=== PATIENT | male | born 1990 | race Caucasian/White ===

== ENCOUNTER 2016-07-21 01:27 | Observation (INO) | payer OTHER ==
[~2016-07-21] VITALS: Ht 170.2 cm; Wt 61.2 kg
[2016-07-21] VITALS (13 sets, daily range): BP systolic 104–138; BP diastolic 53–85
[~2016-07-21 01:27] MED LIST: CYCLOBENZAPRINE5 M1 PO; MOTRIN 600 MG600 MG PO
--- NOTE | 2016-07-21 01:37 | NUR ---
25yo MALETO TRIAGE REQUESTING DETOX FROM ALCOHOL AND HEROIN. STATES LAST DRINK WAS TH AM AND LAST HEROIN USE WAS 24HR AGO. STATES N,V,D BEGAN THIS EVENING. STATES HE HAS "BEEN DRINKING AND USING DRUGS DAILY BASIS FOR 4 MONTHS"
--- NOTE | 2016-07-21 01:44 | ED AMS/SEIZURE/WEAK/DIZZY ---
See Addendum History of Present Illness General Chief Complaint: ETOH/Drug Related Complaint Stated Complaint: " HERE FOR ETOH/ HEROIN DETOX" Source: patient Exam Limitations: no limitations Vital Signs & Intake/Output Vital Signs & Intake/Output Vital Signs Date Time Temp Pulse Resp B/P B/P Pulse O2 O2 Flow FiO2 Mean Ox Delivery Rate 06/ 0110 97.2 70 16 118/66 06/02 0110 97.2 70 16 118/66 98 Room Air Room Air 06/01 2257 98.3 81 20 119/77 06/01 2254 98.3 81 20 119/77 98 Room Air 06/01 1937 97.5 113 20 120/77 06/01 1927 97.5 113 20 123/77 97 06/01 1546 99.5 111 24 138/83 06/01 1540 99.5 111 24 138/83 06/01 1400 98 Room Air 06/01 1320 98.0 110 16 122/70 99 Room Air 06/01 1230 95 Room Air 06/01 1224 98.0 108 16 104/58 06/01 1224 97.0 108 16 104/58 98 Room Air 06/01 1043 98.1 116 16 122/66 06/01 0950 97.9 120 16 130/85 06/01 0950 97.0 120 15 130/85 97 Room Air Room Air 06/01 0850 98.1 112 18 128/70 06/01 0850 98.1 112 16 128/70 97 Room Air 06/01 0836 98.1 98 18 106/66 06/01 0730 98.1 98 18 106/66 98 Room Air 06/01 0655 99.5 109 18 105/53 06/01 0655 97.7 104 18 108/60 97 Room Air 06/01 0645 99.5 104 18 106/55 06/01 0625 99.5 06/01 0538 99.5 109 18 105/53 06/01 0521 99.5 109 18 105/53 96 Room Air 06/01 0440 100.8 06/01 0345 100.8 106 18 111/74 06/01 0345 100.8 106 18 111/74 99 Room Air 06/01 0245 100.8 119 16 110/65 ED Intake and Output 06/02 0000 06/01 1200 Intake Total 120 1000 Output Total Balance 120 1000 Intake, IV 1000 Intake, Oral 120 Patient 135 lb Weight Allergies Coded Allergies: amoxicillin (Severe, HIVES 07/21/16) Reconcile Medications CYCLOBENZAPRINE HCL (Cyclobenzaprine Hydrochloride) 5 MG TABLET 1 TAB PO TID MUSCLE SPASMS (Reported) Ibuprofen (Motrin 600 MG Tab) 600 MG TABLET 1 TAB PO Q6H PRN PAIN (Reported) Triage Note: 25yo MALETO TRIAGE REQUESTING DETOX FROM ALCOHOL AND HEROIN. STATES LAST DRINK WAS THURS AM AND LAST HEROIN USE WAS 24HR AGO. STATES N,V,D BEGAN THIS EVENING. STATES HE HAS "BEEN DRINKING AND USING DRUGS DAILY BASIS FOR 4 MONTHS" Triage Nurses Notes Reviewed? yes Onset: Gradual Duration: hour(s):, getting worse Timing: recent history Injury Environment: home Severity: moderate Modifying Factors: Improves With: other (W/ALCOHOL/HEROIN). Associated Symptoms: MYALGIA, FEVER, NAUSEA HPI: 25 yo gentleman presents seeking etoh and heroin detox. He shares that he drinks 1 pint a day, but stopped at approximately 7pm. He has been drinking for 4 months. He notes also that he has been injecting 1 bundle of heroin a day, and last used yesterday. He denies other drug use, SI/HI. He shares that he had a seizure from etoh detox last year. (VICTOR MANUEL LEVY,ZOHAIB Don) Past History Travel History Traveled to [place] past 21 day No Medical History Any Pertinent Medical History? see below for history Neurological: NONE EENT: NONE Cardiovascular: NONE Respiratory: NONE Gastrointestinal: NONE Hepatic: NONE Renal: NONE Musculoskeletal: NONE Psychiatric: NONE Endocrine: NONE Blood Disorders: NONE Cancer(s): NONE CLAIMS PROCESSOR/Reproductive: NONE Tetanus Vaccine: 04/21/11 Surgical History Surgical History: N Psychosocial History What is your primary language Northern Irish Family History Hx Contributory? No (VICTOR MANUEL LEVY,ZOHAIB Don) Review of Systems Review of Systems Constitutional: Reports: no symptoms. EENTM: Reports: no symptoms. Respiratory: Reports: no symptoms. Cardiovascular: Reports: no symptoms. GI: Reports: no symptoms. Genitourinary: Reports: no symptoms. Musculoskeletal: Reports: no symptoms. Skin: Reports: no symptoms. Neurological/Psychological: Reports: no symptoms. Hematologic/Endocrine: Reports: no symptoms. Immunologic/Allergic: Reports: no symptoms. All Other Systems: Reviewed and Negative (VICTOR MANUELZOHAIB JARA MD) Physical Exam Physical Exam General Appearance: well developed/nourished, moderate distress Head: atraumatic, normal appearance Eyes: Bilateral: normal appearance. Ears, Nose, Throat: normal pharynx, normal ENT inspection Neck: normal inspection, supple, full range of motion Respiratory: normal breath sounds, chest non-tender, no respiratory distress, quiet respiration, lungs clear Cardiovascular: regular rate/rhythm Gastrointestinal: normal bowel sounds, soft, non-tender, no organomegaly Back: normal inspection, normal range of motion Extremities: normal range of motion, track cochran noted. no sign of infection Neurologic/Psych: no motor/sensory deficits, awake, alert, oriented x 3 Skin: intact, normal color Core Measures ACS in differential dx? No CVA/TIA Diagnosis: No Severe Sepsis Present: No Septic Shock Present: No (VICTOR MANUEL LEVY,ZOHAIB Don) Progress Differential Diagnosis: polysubstance abuse, withdrawal, vs other. Plan of Care: Orders Procedure Date/time Status Continuous Observation Monitor 07/22 0700 Active Restraint- Medical 07/22 0430 Active Continuous Observation Monitor 07/22 0300 Active Restraint- Medical 07/22 0030 Active Regular Diet 07/21 B Active Continuous Observation Monitor 07/21 2300 Active Restraint- Medical 07/21 2030 Active Continuous Observation Monitor 07/21 1900 Active Code Status 07/[address] in observation 07/21 1307 Active Patient Data 07/21 1307 Active ED CRISIS PSYCH CONSULT 07/21 1304 Active Patient Safety Monitor 07/21 1222 Active Continuous Observation Monitor 07/21 0735 Active CIWA 07/21 0354 Active Intake & Output 07/21 0238 Active Laboratory Tests 07/21/16 0401: Urine Opiates Screen 3621.00 H, Methadone Screen < 40, Barbiturate Screen < 60, Ur Phencyclidine Scrn < 6.00, Amphetamines Screen < 100, U Benzodiazepines Scrn < 85, Urine Cocaine Screen > 1000 H, Urine Cannabis Screen > 80.00 H Initial ED EKG: sinus tach Hand-Off Endorsed To: YVON BHATTI MD Endorsed Time: 0700 Pending: consult (VICTOR MANUEL LEVY,ZOHAIB Don) Hand-Off Endorsed To: GLORIA VILA MD Endorsed Time: 1900 Pending: consult Comments: Vision is refusing to stay for alcohol detox. Patient received Haldol and Phenergan prior to my arrival. At this point the patient is to was able to be discharged however once the medications wear off if he still wants to leave and he remains nonsuicidal or homicidal he will be discharged. (YVON BHATTI MD) Hand-Off Endorsed To: SEBASTIEN LEVY,TIARA Tapia Endorsed Time: 0700 Pending: consult (GLORIA VILA MD) Departure Departure Condition: Stable Clinical Impression Primary Impression: Polysubstance abuse Secondary Impressions: Alcohol withdrawal, Cocaine abuse, Marijuana abuse Departure Forms: Customer Survey General Discharge Information Comments 07/21/16, 5:08am...Pt resting comfortably in ED.... case management to consult in AM. (VICTOR MANUEL LEVY,ZOHAIB Don) Departure Additional Instructions: RETURN IF YOU WOULD LIKE HELP TO STOP USING DRUGS AND DRINKING ALCOHOL. (YVON BHATTI MD) Departure Disposition: STILL A PATIENT Referrals: PATIENT HAS NO PRIMARY CARE DR (PCP/Family) (GLORIA VILA MD) ED Attending Observation Initial Observation Note: I have seen and personally examined SAM SIMON on 07/21/16 at 1313. I agree with the current emergency department documentation. The disposition (admission or discharge) is uncertain at this time, he needs a period of observation for the following reason(s): [A she remains agitated and confused. Patient is requiring constant supervision and is currently in the neck bed. A police paper was faxed over. The patient had made suicidal comments via text message it. Patient will require psychiatric evaluation. Patient is still at high risk.] The ED Nurse caring for this patient has been personally informed as to what the patient is being observed for. Observation Re-Evaluation: I have reevaluated SAM SIMON on 07/21/16 at 1820. The physical findings that support the continued need to observe this patient include [patient is still requiring the neck bed for uncontrolled agitation and unsafe ambulation. Patient will require a crisis consultation.]. (YVON BHATTI MD)
--- NOTE | 2016-07-21 02:04 | NUR ---
PT TO ROOM 12, CHANGED INTO BLUE SCRUBS. WANDED BY SECURITY. MOTHER WILL TAKE ALL PTS BELONGINGS AND VALUABLES. PT SINUS TACHYCARDIA ON TURNER MACHINE, EKG DONE, PT DENIES CP
--- NOTE | 2016-07-21 02:19 | NUR ---
IV EST #20 IN RIGHT HAND BY ISAMAR GANN PT MEDICATED WITH 2MG PO ATIVAN, 2MG IV ATIVAN, 0.1 CATAPRES, 4MG ZOFRAN, AND NS INFUSING PER EMAR
[2016-07-21 02:24] LABS: ABSOLUTE BASOPHIL COUNT 0 /CUMM (0.0-0.2); ABSOLUTE EOSINOPHIL COUNT 0.1 /CUMM (0.0-0.7); ABSOLUTE GRANULOCYTE CT 9.8 /CUMM (1.4-6.5); ABSOLUTE LYMPH COUNT 0.9 /CUMM (1.2-3.4); ABSOLUTE MONOCYTE COUNT 0.7 /CUMM (0.10-0.60); BASOPHIL % 0.1 % (0.0-2.0); EOSINOPHIL % 0.6 % (0-5); HEMATOCRIT 45.4 % (42-52); MEAN CORPUSCULAR HGB 28.6 PG (27.0-31.0); MEAN CORPUSCULAR HGB CONC 33.6 G/DL (33.0-37.0); MEAN CORPUSCULAR VOLUME 85.2 FL (80.0-94.0); MEAN PLATELET VOLUME 8.4 FL (7.4-10.4); PLATELET COUNT 129 /CUMM (130-400); RBC DISTRIBUTION WIDTH 14.4 % (11.5-14.5); RED BLOOD CELL CT 5.33 /CUMM (4.70-6.10); WHITE BLOOD CELL COUNT 11.5 /CUMM (4.8-10.8)
--- NOTE | 2016-07-21 04:05 | NUR ---
PT'S URINE OBTAINED AT 0401 AND SENT TO LAB
--- NOTE | 2016-07-21 04:19 | NUR ---
PT IV RIPPED OUT, AZEEM RN AT BEDSIDE FOR SECOND IV PLACEMENT
--- NOTE | 2016-07-21 04:39 | NUR ---
SECOND IV EST #20 IN LEFT HAND. PT MEDICATED WITH 2ND LITER OF NS, 30MG TORADOL, 4MG ZOFRAN, AND 975MG TYLENOL PER EMAR
--- NOTE | 2016-07-21 05:27 | NUR ---
PT MEDICATED WITH 3RD NS LITER INFUSING PER EMAR
--- NOTE | 2016-07-21 05:39 | NUR ---
PT MEDICATED WITH 2MG PO ATIVAN AND 2MG IV ATIVAN FOR CIWA SCORE 17.
--- NOTE | 2016-07-21 06:16 | NUR ---
PT RIPPED OUT SECOND IV BECAUSE "MEDICINES WERENT WORKING". PT MEDICATED WITH IM 5MG HALDOL AND 2MG ATIVAN IM PER EMAR.
--- NOTE | 2016-07-21 06:25 | NUR ---
PT MEDICATED WITH 21MG PAT NICOTINE PATCH PER EMAR TO LEFT ARM
--- NOTE | 2016-07-21 06:56 | NUR ---
PT STATING THAT HE WANTS TO LEAVE AND NOT WAIT FOR CASE MANAGEMENT EVAL IN AM. AT BEDSIDE FOR DISCUSSION. PT MEDICATED PER EMAR 25MG PHENERGEN, 5MG HALDOL, 2MG ATIVAN, AND 0.1 CLONODINE BP 106/55
--- NOTE | 2016-07-21 07:37 | NUR ---
PT NOTED TO BE STANDING UP NEXT TO GARBAGE CAN AT THIS TIME, UPON ENTERING ROOM PT URINATING IN GARBAGE CAN. PT ASSISTED BACK INTO BED, EXPLAINED TO PT TO LET STAFF MEMBERS KNOW WHEN HE HAS TO USE THE BATHROOM AND WE WILL ASSIST HIM. PT CONTINUES TO GET UP AND WALK AROUND ROOM. MULTIPLE STAFF MEMBERS IN ROOM MULTIPLE TIMES TO GET PT TO STAY IN BED FOR SAFETY.
--- NOTE | 2016-07-21 08:04 | NUR ---
PT CONTINUES TO CLIMB OFF STRETCHER VERY DIFFICULT TO REDIRECT , UNABLE TO STAND VERY OFF BALANCE AND NOTED TO THRASHING AROUND, PT STATES THAT HE IS CRAWLING OUT OF HIS SKIN. PTS MOTHER CALLED AND STATED THAT A [place] WEATHER STRIPPER MAY SHOW UP DUE TO PT MADE SELF HARM STATEMENTS 2 WEEKS AGO TO HER AND HIS SISTER. AT THIS TIME PT DENIES WANTING TO HARM SELF.
--- NOTE | 2016-07-21 08:17 | NUR ---
PT CONTINUED TO CLIMB OFF STRETCHER AND STAFF HAVING TO CATCH HIM FROM FALLING BACKWARDS. PT PLACED IN NET BED WITH 1 SIDE UNZIPPED WITH SITTER AT BEDSIDE.
--- NOTE | 2016-07-21 08:33 | NUR ---
pt thrashing around on bed, yelling out.sitter remains with patient for his safety
--- NOTE | 2016-07-21 09:37 | NUR ---
THIS RN SPOKE WITH PATIENTS MOM, "I JUST WANTED TO GIVE YOU A HEADS UP THAT A INCINERATOR PLANT LABORER MAY BE COMING TO SEE HIM OR CALL THE STAFF TODAY." PER MOTHER, FOR THE LAST TWO WEEKS, A INCINERATOR PLANT LABORER HAS BEEN COMING TO DO SAFETY CHECKS DAILY EVER SINCE THE MOTHER PLACED A CALL TO PD TWO WEEKS AGO ABOUT THE PATIENT SENDING "SELF-HARM" TEXTS. INCINERATOR PLANT LABORER IS AWARE PT IS HERE, BUT MAY BE COMING TO VISIST, UNSURE AT THIS TIME.
--- NOTE | 2016-07-21 10:18 | NUR ---
PT YELLING OUT STATES THAT HE HAS TO MOVE HIS BOWELS , PT AMBULATED TO BATHROOM ASSIST OF 2 DUE TO VERY UNSTEADY GAIT AND MALE TRAVEL SPECIALIST WITH PT. PTS GRANDFATHER AT BEDSIDE AND PT NOTED TO BE YELLING AT HIM. PT AMBULATED BACK TO ROOM, PT STATES THAT HIS MUSCLES KEEP TENSING UP ON HIM, PT HAS NOT BEEN ABLE TO REST OR CLOSE EYES SINCE THIS NURSES ARRIVAL AT 0700
--- NOTE | 2016-07-21 10:32 | NUR ---
PER DR BHATTI PT IS STILL REFUSING DETOX AND WOULD LIKE TO BE ADMITTED, PATIENT REMAINS UNSTEADY ON HIS FEET . NO VISIBLE TREMORS NOTED . PT NOTED TO BE GETTING SLEEPY AT THIS TIME, PTS GRANDFATHER WENT HOME AND FRIEND NASRA AT [facility] TRYING TO SPEAK WITH PT
--- NOTE | 2016-07-21 11:42 | NUR ---
PT NOTED TO BE STANDING ON STRETCHER AND DIFFICULT TO REDIRECT BY SITTER
--- NOTE | 2016-07-21 11:51 | NUR ---
AMBULATORY TO BATHROOM
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
--- NOTE | 2016-07-21 12:48 | NUR ---
PT REMAINS AGITATED AND DIFFICULT TO REDIRECT. DR BHATTI TO WAITING ROOM TO INFORM MOTHER THAT PT NEEDS CONTINUED OBSERVATION
--- NOTE | 2016-07-21 13:00 | NUR ---
RECEIVED FAX FROM PROCESS MANAGER WITH [employer] FROM 07/07 REGARDING SUICIDAL TEXT MESSAGES. PT DENIES SI CURRENTLY AND SHOWS MINIMAL INSIGHT INTO THAT PREVIOUS SITUATION
--- NOTE | 2016-07-21 13:01 | NUR ---
DENISE WILLIAM AT BEDSIDE DUE TO PATIENTS CONTINUED EXPLOSIVE EPISODES AND AGITATION IN ROOM
--- NOTE | 2016-07-21 13:24 | NUR ---
PT CONTINUES TO ESCALATE DESPITE FREQUENT REDIRECTION, LIMIT SETTING AND EMOTIONAL SUPPORT PROVIDED. UNWILLING TO COOPERATE WITH BEHAVIORAL EXPECTATIONS OF ED. JUMPING UP STANDING ON STRETCHER AND SCREAMING. SPITTING AT SITTER. MD AWARE AND SECURITY TO BEDSIDE FOR ASSISTANCE WITH MEDICATION ADMINISTRATION. PT ACCEPTING MEDS OFFERED, MEDICATED WITH ATIVAN, BENADRYL AND ZYPREXA PER eMAR
--- NOTE | 2016-07-21 13:55 | NUR ---
PT CONTINUES TO JUMP AROUND ON STRETCHER, DEMONSTRATES UNSAFE AMBULATION AND NO ORIENTED TO PLACE OR TIME. DEMONSTRATES DISSASSOCIATION TO REALITY.
--- NOTE | 2016-07-21 14:01 | NUR ---
CRISIS UNABLE TO EVALUATE SAM AT THIS TIME DUE TO PATIENT'S CONDITION. CONTINUES TO TRY TO AMBULATE ON STRETCHER, REDIRECTED BY SITTER. CONTINUES WITH DISORGANIZED SPEECH AND SLURRING HIS WORDS. UNABLE TO ARTICULATE SENTENCES AND INTERACT APPROPRIATELY WITH STAFF
--- NOTE | 2016-07-21 14:07 | NUR ---
Pt is unable to cooperate and participate in crisis eval at this time. This board writer will continue to check in for assessment.
--- NOTE | 2016-07-21 15:34 | NUR ---
CONTINUES TO STAND UP ON STRETCHER AND TAKING CLOTHES OFF. SITTER REMAINS PRESENT TO REDIRECT BEHAVIOR
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
--- NOTE | 2016-07-21 16:25 | NUR ---
PT BEING TRANSFERRED TO 15
--- NOTE | 2016-07-21 18:20 | NUR ---
PT WANTING TO SIT AT BEDSIDE FOR URINAL. STILL DIFFICULT TO REDIRECT. ASSISTANCE OFERED FOR URINAL WHICH PT DID NOT APPEAR TO UNDERSTAND
--- NOTE | 2016-07-21 20:05 | NUR ---
SW attempted to complete Crisis evaluation, however the patient is not able to participate. He appears agitated, confused and was not speaking in coherent sentences. He was informed that he will be here overnight and evaluated by Crisis in the AM, however it does not appear that he understood. Case discussed with ISAMAR Guido and Dr. Cavazos.
--- NOTE | 2016-07-21 21:17 | NUR ---
PT SEEN IN ROOM, LIGHTS OFF. PT LYING IN BED, RESTING QUIETLY.
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
[2016-07-22] VITALS (7 sets, daily range): BP systolic 105–144; BP diastolic 57–67
--- NOTE | 2016-07-22 01:14 | NUR ---
REMAINS IN ZIPPED NET BED. WHEN BED UNZIPPED FOR VS PT STATED "I FEEL LIKE A CAGED ANIMAL IN THIS THING CAN I PLEASE GET OUT" SPEECH SLIGHTLY GARBLED ,BUT APPROPRIATE. SITTER REMAINS AT DOOR.
--- NOTE | 2016-07-22 03:30 | NUR ---
REMAINS IN NET BED. LYING FLAT W/BLANKET OVER HIS HEAD. ANSWERS APPROPRIATELY IN GARBLED SPEECH TO SIMPLE QUESTIONS. SITTER REMAINS PRESENT
--- NOTE | 2016-07-22 05:45 | NUR ---
REMAINS IN NET BED. SLEEPING VERY SHORT INTERVALS. VS TAKEN. SPEECH REMAINS SLOW GARBLED, BUT APPROPRIATE SITTERPRESENT
--- NOTE | 2016-07-22 06:28 | NUR ---
RECD CALL FROM PT'S FATHER IF ANY QUESTIONS ARISE HE CAN BE REACHED AT [phone].
--- NOTE | 2016-07-22 07:41 | NUR ---
PT SLEEPING SOUNDLY AT THIS TIME, REG RESP RATE NOTED. SLIGHTLY UNCOOPERATIVE WITH WAKING UP FOR VITAL SIGNS, ASKING PT MULTIPLE TIMES TO PLEASE ROLL OVER SO VITAL SIGNS CAN BE TAKEN. PT CONTINUES TO LAY WITH EYES OPEN. AFTER MULIPLE ATTEMTS PT ROLLED OVER AND SAT UP AND ALLOWED THIS RN TO TAKE VITALS. VSS. ASKED PT IF HE WOULD LIKE BREAKFAST TRAY AND PT RESPONDING "NO" SITTER REMAINS PRESRNT, PT REMAINS IN NET BED AT THIS TIME FOR SATETY. WILL CTM. PT NOT ANSWERING ANY OTHER QUESTIONS THIS RN IS ASKING, PT SITTING THERE REMAINING QUIET AT THIS TIME.
--- NOTE | 2016-07-22 08:11 | NUR ---
Crisis made another attempt to evaluate pt and he only answers questions with a groaning sound or not answering at all.
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
--- NOTE | 2016-07-22 09:22 | NUR ---
SPOKE TO PTS MOTHER TAHIRA. UPDATE PROVIDED AT THIS TIME. PT REMAINS SLEEPING IN NET BED AT THIS TIME, REG RESP RATE NOTED. WILL CTM SITTER REMAINS PRESENT
--- NOTE | 2016-07-22 09:59 | NUR ---
PT TAKEN OUT OF NET BED, PT CALM AND COOPERATIVE, OFFERS NO COMPLAINTS. PROVIDED TOOTHBRUSH AND TOOTHPASTE FOR ORAL HYGEINE AND NEW SET OF BH SCRUBS.
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
--- NOTE | 2016-07-22 12:32 | NUR ---
PT SLEEPING, NORMAL RESP RATE NOTED.
--- NOTE | 2016-07-22 12:54 | NUR ---
PT REQUESTING TO CALL HIS MOTHER AT THIS TIME, ASISTED TO USE THE PHONE TO MAKE PHONE CALL
--- NOTE | 2016-07-22 13:48 | NUR ---
PT RESTING ON STRETCHER, PT SEEMS TO BE GETTING SLIGHTLY AGITATED THAT THE PROCESS IS TAKING SO LONG. PT EDUCATED ON CRISIS PROCESS AND OFFERED DIVERSIONAL ACTIVITIES. PT REQUESTING NICOTINE PATCH
--- NOTE | 2016-07-22 14:54 | NUR ---
NICOTINE PATCH APPLIED PER ORDER AT THIS TIME. PT RESTING ON STRETCHER, STATES HE IS "JUST BORED" AT THIS TIME. OFFERS NO OTHER COMPLAINS. SITTER REMAINS PRESENT
--- NOTE | 2016-07-22 17:25 | NUR ---
PT MEDICATED WITH ATIVAN PER EMAR.
--- NOTE | 2016-07-22 18:16 | NUR ---
PT CLEARED FOR DISCHARGE BY DR. CROWE. DISCHARGE INSTRUCTIONS AND FOLLOW UP REVIEWED WITH PT AND FAMILY. OFFERS NO COMPLAINTS AT THIS TIME. AMBULATORY OUT OF DEPARTMENT WITH NO DIFFICULTY.
== END 2016-07-22 18:17 ==
LOC: ERH 01:27 → ERHI 13:07 → CMPBEDREQ 07-22 20:11
PROVIDERS: Pediatrics; ADMIT Emergency Medicine
DX: F10.239 Alcohol dependence with withdrawal, unspecified (principal); F14.10 Cocaine abuse, uncomplicated; F12.10 Cannabis abuse, uncomplicated; F11.10 Opioid abuse, uncomplicated
CPT/HCPCS: 80307; 93005; 93010; 96361; 96372; 96374; 96375; 96376; G0378; G0463; G0480; J1200; J1630; J1885; J2405; J2550; J3490